=== PATIENT | female | born 1985 | race Caucasian/White ===

== ENCOUNTER → 2020-11-07 13:39 | Outpatient (CLI) | payer OTHER, SELFPAY ==
--- NOTE | ~2020-11-07 | US_ITS ---
EXAMINATION: US thyroid EXAM DATE: 11/07/2020 14:04 INDICATION: Thyroid nodule. TECHNIQUE: Multiple grayscale and Doppler images of the thyroid were obtained (by a technologist who performed the scan) and subsequently reviewed. Individual nodules and recommendations may be reporte d in accordance with TI-RADS system as designated by the 2017 ACR White Paper TI-RADS committee. Comp shmuelson is made to prior examination from 10/17/2018. FINDINGS: The right thyroid lobe measures 7.4 x 3.1 x 2.8 cm, the left measuring 6.0 x 2.6 x 2.7 cm. Moderately heterogeneous thyroid echogenicity with scattered thyroid nodules suspected, most are difficult to c onfidently delineate due to them being isoechoic to the other thyroid parenchyma. Largest thyroid is in the right thyroid lobe midpole (previously biopsied), just below a smaller bett er defined nodule, measuring 2.8 x 2.0 x 1.9 cm, solid (2 points), isoechoic (1 point), wider than ta ll, ill-defined margin, without echogenic foci, category TR3 for this nodule. These measurements are larger than those provided on prior study. The nodule located just above it has also increased in siz e, today measuring 1.7 x 1.4 x 1.5 cm, similar appearance to the larger previously biopsied nodule. IMPRESSION: Multinodular goiter, with increase in size of thyroid and its nodules, probably benign (1 biopsy-proven). Reviewed, dictated and finalized at location A. IMPRESSION: Multinodular goiter, with increase in size of thyroid and its nodul es, probably benign (1 biopsy-proven).
== END ==
PROVIDERS: PCP Chiropractor
DX: E04.2 Nontoxic multinodular goiter (principal)
CPT/HCPCS: 76536

== ENCOUNTER → 2021-03-16 14:24 | Outpatient (CLI) | payer OTHER, SELFPAY ==
--- NOTE | ~2021-03-16 | XR_ITS ---
EXAMINATION: XR ankle RT 2V DATE: 03/16/2021 14:39 INDICATION: Right ankle injury and pain. TECHNIQUE: 2 views of right ankle were obtained. COMPARISON: None. FINDINGS: Bone alignment is normal. No fracture. Joint spaces are well maintained. There is ankle sof t tissue swelling. IMPRESSION: 1. No fracture. Reviewed, dictated and finalized at location A. IMPRESSION: 1. No fracture.
== END ==
PROVIDERS: PCP Family Medicine; Visit Provider Physician Assistant
DX: S99.911A Unspecified injury of right ankle, initial encounter (principal); X58.XXXA Exposure to other specified factors, initial encounter
CPT/HCPCS: 73600

== ENCOUNTER → 2021-06-12 09:47 | Outpatient (CLI) | payer OTHER, SELFPAY ==
--- NOTE | ~2021-06-12 | US_ITS ---
EXAMINATION: US thyroid DATE: 06/12/2021 10:03 INDICATION: Nontoxic single thyroid nodule. TECHNIQUE: Multiple ultrasound images of the thyroid were obtained. COMPARISON: Ultrasound 11/07/2020, 10/17/2018 FINDINGS: The right thyroid lobe measures 7.2 x 3.6 x 3.0 cm. The left thyroid lobe measures 6.4 x 3.0 x 2.5 c m. There are numerous nodules in the thyroid with similar ultrasound appearance. In the right thyroi d lobe, there is a 1.6 cm solid, isoechoic, aeghf-azjt-dmrv nodule with ill-defined margin without ec hogenic foci (TI-RADS TR3). In the right thyroid lobe, there is a 2.0 cm solid, hypoechoic, wider-riki n-tall nodule with ill-defined margin without echogenic foci (TR4). These two nodules were measured t ogether on 10/17/18 and are stable from that time. They demonstrated benign biopsy results on 11/10/18. In the left thyroid lobe, there is a 1.7 cm solid, isoechoic, mkbjo-tasc-hgvt nodule with ill-define d margin without echogenic foci (TR3), increased from 1.2 cm on 10/17/18. In the left thyroid lobe, th ere is a 1.4 cm solid, hypoechoic, yfizd-jakp-kxzx nodule with ill-defined margin without echogenic f oci (TR4), stable from 10/17/18. IMPRESSION: 1. Multinodular goiter. Thyroid ultrasound is recommended in one year. Reviewed, dictated and finalized at location A. 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
== END ==
PROVIDERS: PCP Family Medicine; Visit Provider Internal Medicine Endocrinology, Diabetes & Metabolism
DX: E04.2 Nontoxic multinodular goiter (principal)
CPT/HCPCS: 76536

== ENCOUNTER 2021-07-17 09:32 | Emergency (ER) | payer OTHER, SELFPAY ==
--- NOTE | ~2021-07-17 | US_ITS ---
US pelvic complete w TV DATE: 07/17/2021 11:44 INDICATION: Vaginal bleeding TECHNIQUE: Real-time imaging via transabdominal and transvaginal views COMPARISON: None FINDINGS: Uterus measures approximately 10 cm height, 4.6 cm AP and transverse dimension with 7 mm AP dimension of the endometrial complex. Nabothian cervical cysts are noted. Right ovary 4.7 x 2.8 x 2.5 cm, with vascular flow. Left ovary 4.4 x 2.1 x 2.6 cm with vascular flow. No pelvic mass lesion or abnormal pelvic free fluid collection is evident. IMPRESSION: Unremarkable examination Reviewed, dictated and finalized at Location A. Reviewed, dictated and finalized at location A. 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
[2021-07-17 09:40] VITALS: BP 142/99; PULSE 87; RESP 21; TEMP 36.7; O2SAT 96
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
[2021-07-17 11:00] VITALS: BP 141/80; PULSE 80; RESP 20; O2SAT 100
[2021-07-17 11:55] LABS: Basophils Percent Auto 0.5 % (0.2-1.2); Eosinophils Absolute Auto 0.2 K/mm3 (0-0.3); Eosinophils Percent Auto 2.1 % (0-4.4); Hematocrit 40.8 % (37.0-47.0); Hemoglobin 13.8 g/dL (12.0-15.0); Immature Granulocyte Absolute 0.02 K/mm3 (0.00-0.031); Immature Granulocyte Percent A 0.2 % (0-0.5); Lymphocytes Absolute Auto 2.79 K/mm3 (0.9-3.2); Lymphocytes Percent Auto 33.3 % (18.3-44.2); Mean Corpuscular HGB Conc 33.8 g/dl (32-36); Mean Corpuscular Hemoglobin 29.7 pg (26-34); Mean Corpuscular Volume 87.7 fl (80-100); Mean Platelet Volume 9.2 fl (7.4-10.4); Monocytes Absolute Auto 0.6 K/mm3 (0.1-0.6); Neutrophils Absolute Auto 4.8 K/mm3 (1.3-6.7); Neutrophils Percent Auto 56.9 % (45.5-73.1); Platelet Count Result 383 k/mm3 (150-375); Red Blood Count 4.65 M/mm3 (4.2-5.4); Red Cell Distribution Width 12.2 % (11.5-14.5); White Blood Count 8.4 K/mm3 (4.5-10.0)
[2021-07-17 12:05] LABS: Prothrombin Time 13.2 Seconds (11.1-14.7)
[2021-07-17 12:06] LABS: Alanine Aminotransferase 18 U/L (4-35); Albumin Level 3.9 g/dL (3.5-5.1); Alkaline Phosphatase 64 U/L (38-126); Anion Gap 7 mmol/L (8-16); Aspartate Amino Transferase 20 U/L (14-36); Bilirubin,Total 0.4 mg/dL (0.2-1.3); Blood Urea Nitrogen 8 mg/dL (7-17); Calcium 8.9 mg/dL (8.4-10.2); Carbon Dioxide 25 mmol/L (22-30); Chloride 105 mmol/L (98-107); Estimated Glomerular Filt Rate > 60; Glucose 91 mg/dL (65-110); Lipase 51 U/L (23-300); Partial Thromboplastin Time 32.9 SECONDS (22.3-36.8); Sodium 137 mmol/L (137-145)
[2021-07-17 12:08] LABS: Add Urine Microscopic? YES; Appearance Urine Cloudy (Clear); Bilirubin Urine Negative (Negative); Blood Urine 3+ (Negative); Color Urine Red (Yellow); Glucose Urine UA Negative (Negative); Ketones Urine Negative (Negative); Leukocyte Esterase Ur Negative LEU/UL (Negative); Nitrate Urine Negative (Negative); Protein Urine 1+ mg/dL (Negative); RBC Urine >75 /hpf (0-2); Specific Grav Ur 1.014 (1.001-1.035); Squamous Epithelial Cell Urine Occasional /hpf (Few); Urobilinogen Urine Negative mg/dL (<2.0); WBC Urine 0-3 /hpf
[2021-07-17 13:00] VITALS: BP 140/74; PULSE 79; RESP 20; O2SAT 100
== END 2021-07-17 14:33 | disposition home or self-care (01) ==
PROVIDERS: Emergency Provider Nurse Practitioner
DX: N93.9 Abnormal uterine and vaginal bleeding, unspecified (principal); E28.2 Polycystic ovarian syndrome; I10 Essential (primary) hypertension; F17.210 Nicotine dependence, cigarettes, uncomplicated
CPT/HCPCS: 36415; 76830; 76856; 80053; 81001; 81025; 83690; 85025; 85610; 85730; 87070; 87491; 87591; 87808; 99284

== ENCOUNTER → 2022-03-08 14:57 | Outpatient (CLI) | payer OTHER, SELFPAY ==
--- NOTE | ~2022-03-08 | XR_ITS ---
XR hip RT 2V w AP pelvis 03/08/2022 15:39 Indication: Right hip pain Procedure: 3 views right hip Comparison: No prior studies for comparison. Findings: Pelvic rings are intact. No fracture, subluxation or dislocation. No significant joint spac e narrowing. No soft tissue abnormality. No foreign body. Impression: 1: No significant abnormality of the right hip. Reviewed, dictated and finalized at location B. Impression: 1: No significant abnormality of the right hip.
== END ==
PROVIDERS: PCP Family Medicine; Visit Provider Family Medicine
DX: M25.551 Pain in right hip (principal)
CPT/HCPCS: 73502

== ENCOUNTER 2022-05-06 13:18 | Outpatient (CLI) | payer OTHER, SELFPAY ==
--- NOTE | 2022-05-06 13:28 | ECG_ITS ---
Measurements Intervals [place] Rate: 79 P: 37 NE: 133 QRS: -8 QRSD: 89 T: 17 QT: 353 QTc: 405 Interpretive Statements SINUS RHYTHM WITH SINUS ARRHYTHMIA NO PREVIOUS ECG AVAILABLE FOR COMPARISON Electronically Signed On 05-06-2022 15:53:54 CDT by Kirstin Arana M.D.
[2022-05-06 13:56] LABS: Anion Gap 10 mmol/L (8-16); Blood Urea Nitrogen 9 mg/dL (7-17); Calcium 9.3 mg/dL (8.4-10.2); Carbon Dioxide 23 mmol/L (22-30); Chloride 105 mmol/L (98-107); Estimated Glomerular Filt Rate > 60; Glucose 98 mg/dL (65-110); Sodium 138 mmol/L (137-145)
== END 2022-05-06 13:19 | disposition home or self-care (01) ==
LOC: ANHSURGERY 13:23
PROVIDERS: Anesthesiology; PCP Family Medicine; Visit Provider Obstetrics & Gynecology
DX: E11.9 Type 2 diabetes mellitus without complications (principal); I10 Essential (primary) hypertension; Z01.818 Encounter for other preprocedural examination
CPT/HCPCS: 36415; 80048; 93005

== ENCOUNTER 2022-05-12 01:14 | Day surgery (SDC) | payer OTHER, SELFPAY ==
[2022-05-05 13:54] VITALS: BMI 32.3
--- NOTE | 2022-05-05 14:05 | PC.NURSE ---
Report to the Outpatient Waiting Room, entrance under the green pavilion located off [facility], at time 10:00 on date 05/12/22. OR Time: 12:00. Time changes happen often and if your time is changed the preop area will call you the afternoon before. - You and your visitor will be asked to self-screen and do not enter if you have any COVID symptoms. - We encourage only one visitor and NO visitors under age 16 are allowed at this time. Your visitor will receive communication by the phone number that is given day of service. - The patient visitor is requested to social distance or may leave the building when not with patient due to restrictions. - A mask is required within the hospital. Patients may have clear liquids (water, carbonated beverages, clear teas, apple juice) until 3 hours prior to surgery (9:00) with a maximum of 20 ounces. - No food from midnight until time of surgery Take the following medications with a SIP of water the morning of surgery: PROPRANOLOL Medications to discontinue per physician: VITAMINS/SUPPLEMENTS Date to take last dose: 05/08/22 Please no make-up, nail kosovan, hairspray, perfume, deodorant, or body powder the day of surgery. No jewelry (including any body piercings) or valuables the day of surgery, leave them at home. Please take a shower or bath the night before, or the morning of, surgery with an antibacterial soap. Wear comfortable, loose fitting clothing. - Jewelry must be removed prior to entering the operating room. Rings and piercings that are not removed may be cut off. - The hospital will not accept responsibility for valuables. - Please leave all valuables, including medications, at home the day of surgery. If you are going home after surgery, a licensed jitney driver must drive you home. - NO public transportation without another adult. - We recommend that an adult stay with you for 24 hours following discharge. - We also recommend that you do not drive, make important decision, drink alcoholic beverages, or take any drugs that were not prescribed by your health care provider for at least 24 hours after your discharge time. Follow any additional instructions given to you from your surgeon. If you or anyone in your household have experienced Covid symptoms in the past week, please notify your surgeon or the nurse liaison at the phone number below for possible testing. Telephone instructions given to PT - LEESA PUENTES and asked if any additional questions and then verbalized understanding. Patient advised to call surgeon office or pre surgery nurse liaison [phone] if any additional questions.
[2022-05-12] VITALS (9 sets, daily range): BP systolic 119–129; BP diastolic 66–95; PULSE 49–94; RESP 10–16; TEMP 36.2–37.1; O2SAT 96–100
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
[2022-05-12] MEDS: ACETAMINOPHEN 500 MG TABLET 1000 MG PO (10:18)
[2022-05-12] MEDS: LACTATED RINGERS 1,000 ML 30 ML IV CONT ×2 (10:27→13:22)
[2022-05-12] MEDS: KETOROLAC 15 MG/ML VIAL (*BKC) IV PUSH (10:29)
[2022-05-12 10:36] LABS: Glucose Point of Care 89 mg/dl (65-105)
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
--- NOTE | 2022-05-12 12:01 | WPDHPUPDATE1 ---
History and Physical Update Update Date/Time: 05/12/22 12:01 History and Physical has been reviewed, including an updated exam of the patient. There are NO changes in the patient's condition. Risks, benefits, and alternatives have been discussed and questions answered. Patient agrees to proceed with procedure.
[2022-05-12] MEDS: LIDOCAINE HCL 1% PF 30 ML VIAL 17 ML INFILTRATE (12:10)
--- NOTE | 2022-05-12 13:26 | W.PM.PROC2 ---
Procedure Note - Detailed Date of Procedure 05/12/22 Pre-op Diagnosis Menorrhagia Desired sterility Post-op Diagnosis Same Procedure Performed Laparoscopic bilateral tubal ligation Hysteroscopy Dilation and sharp curettage Endometrial ablation Surgeon Erasmo Gautam MD Anesthesia General and Local (1% lidocaine) Findings Normal pelvis. Normal-appearing uterus, bilateral tubes/ovaries, anterior and posterior cul de sac, bilateral uterosacral and round ligaments. Normal-appearing RUQ anatomy and vermiform appendix. Endometrial cavity unremarkable, both tubal ostia seen. Uterus sounded to a depth of 8.5 cm with a cervical length of 3.5 cm, giving a subtracted uterine cavity length of 5 cm. Description of Procedure The patient was taken to the operating room where general endotracheal anesthesia was administered. She was prepared and draped in the usual sterile fashion in dorsal lithotomy position. The bladder was drained with a red rubber catheter. A sterile speculum was placed into the vagina. The anterior lip of the cervix was grasped with a single-tooth tenaculum. The acorn uterine manipulator was placed. The speculum was withdrawn. Gloves were changed and attention was turned the abdomen. An infraumbilical skin incision was made with a scalpel. The abdomen was tented and a 5mm bladeless trocar was advanced under direct laparoscopic visualization. Pneumoperitoneum was administered using carbon dioxide gas. A survey of the pelvis and abdomen revealed the findings noted above. A second skin incision was made in the midline above the symphysis pubis and an 8mm bladeless trocar was advanced under direct laparoscopic visualization. The fallopian tube on the right side was followed out to the fimbriated end for identification. It was then grasped in the midportion with the Falope ring applicator. The Falope ring was tented applied. A good loop of tube was noted to be distal to the ring. Hemostasis was excellent. The device was reloaded and the left tube was similarly identified and ligated. Here an unsatisfactory application of the Falope ring was observed. The ring was retrieved and discarded. The Kleppinger forceps were used and the midportions of the bilateral tubes were fulgurated, using the ammeter. A total of 7mL of 1% lidocaine was infiltrated into the serosa of the proximal tubes for postoperative anesthesia. The ports were withdrawn. The gas was allowed to escape. The skin incisions were reapproximated using interrupted subcuticular sutures of 4 0 Vicryl. Dermaflex was applied externally. Attention was then returned to the vagina. The acorn manipulator was withdrawn and the speculum reintroduced. Ten mL of 1% lidocaine was administered in a paracervical block. The cervix was then gently dilated using Hegar dilators until an 8 mm dilator could be passed. Hysteroscopy was performed using sterile saline as a distention medium. Findings are as noted above. Sharp curettage was then performed, and endometrial curettings were collected on a Telfa pad and passed off to be sent to pathology. Finally, the the Irina device was advanced and endometrial ablation commenced without difficulty. The device was withdrawn and a second look was taken using the hysteroscope. Excellent coverage of the endometrial cavity was noted. The tenaculum was removed. Hemostasis was excellent. Sponge, lap, needle and instrument counts were correct. The patient was awakened and taken to the recovery room in stable condition. I was present and scrubbed through the entire procedure. Implants Falope ring x 1 Estimated Blood Loss 5 Drains No Packing No Pathology Yes (Endometrial curettings) Complications None Condition Stable Disposition PACU
[2022-05-12] MEDS: fentaNYL CITRATE INJ (*CRX) 100 MCG/2 ML VIAL 25 MCG IV PUSH ×4 (13:36→13:57)
[2022-05-12] MEDS: KETOROLAC 30 MG/ML VIAL (*BKC) IV PUSH (14:21)
[2022-05-12 14:50] LABS: Glucose Point of Care 115 mg/dl (65-105)
[2022-05-12] MEDS: ONDANSETRON INJ 4 MG/2 ML VIAL IV PUSH (15:07)
== END 2022-05-12 15:44 | disposition home or self-care (01) ==
PROVIDERS: PCP Family Medicine; Visit Provider Obstetrics & Gynecology
PROC: 0UDB8ZZ Extraction of Endometrium, Via Natural or Artificial Opening Endoscopic (ICD-10-PCS; CPT 58558; principal; 2022-05-12 12:00)
DX: N92.0 Excessive and frequent menstruation with regular cycle (principal); Z30.2 Encounter for sterilization; I10 Essential (primary) hypertension; E28.2 Polycystic ovarian syndrome; F17.210 Nicotine dependence, cigarettes, uncomplicated; Z79.899 Other long term (current) drug therapy; E66.9 Obesity, unspecified; Z68.32 Body mass index [BMI] 32.0-32.9, adult
CPT/HCPCS: 58670; 58563; 36415; 80048; 82948; 88305; 93005; A4264; A9270; J1100; J1885; J2250; J2405; J2704; J2710; J3010; J7030; J7120

== ENCOUNTER → 2022-06-10 14:40 | Outpatient (CLI) | payer OTHER, SELFPAY ==
--- NOTE | ~2022-06-10 | US_ITS ---
EXAMINATION: US thyroid DATE: 06/10/2022 15:02 INDICATION: Nontoxic thyroid nodule. TECHNIQUE: Multiple ultrasound images of the thyroid were obtained. COMPARISON: Thyroid ultrasound 06/12/2021, 10/17/2018 FINDINGS: The right thyroid lobe measures 7.4 x 3.6 x 3.0 cm. The left thyroid lobe measures 7.0 x 3.1 x 3.1 c m. There are multiple ill-defined hypoechoic nodules in the thyroid with similar ultrasound appearan ce. In the right thyroid lobe, there is a 1.9 cm solid, hypoechoic, wider than tall nodule with ill-d efined margin without echogenic foci (TI-RADS TR4), enlarged from 10/17/18. In the right thyroid lobe, there is a 3.3 cm solid, hypoechoic, wider than tall nodule with ill-defined margin without echogeni c foci (TR4) status post benign biopsy on 11/10/2018 without increase in size. In the left thyroid lob e, there is a 1.8 cm solid, hypoechoic, wider than tall nodule with ill-defined margin without echoge gay foci (TR4), enlarged from 10/17/18. In the left thyroid lobe, there is a 1.7 cm solid, hypoechoic, wider than tall nodule with ill-defined margin without echogenic foci (TR4), enlarged from 10/17/18. IMPRESSION: 1. Multinodular goiter. Consider ultrasound-guided fine-needle aspiration of the largest nodule that has not yet been biopsied. Reviewed, dictated and finalized at location A. ITY PROJECT MANAGER IMPRESSION: 1. Multinodular goiter. Consider ultrasound-guided fine-needle aspiration of th e largest nodule that has not yet been biopsied.
== END ==
PROVIDERS: PCP Family Medicine; Visit Provider Internal Medicine Endocrinology, Diabetes & Metabolism
DX: E04.2 Nontoxic multinodular goiter (principal)
CPT/HCPCS: 76536

== ENCOUNTER 2024-07-19 17:52 | Emergency (ER) | payer OTHER, SELFPAY ==
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
[2024-07-19 18:02] VITALS: BP 153/124; PULSE 84; RESP 16; TEMP 36.9; O2SAT 99
[2024-07-19 18:21] VITALS: BP 156/109
== END 2024-07-19 18:33 | disposition home or self-care (01) ==
PROVIDERS: Emergency Provider Nurse Practitioner Family; PCP Registered Nurse
DX: J06.9 Acute upper respiratory infection, unspecified (principal); J40 Bronchitis, not specified as acute or chronic; F17.210 Nicotine dependence, cigarettes, uncomplicated; I10 Essential (primary) hypertension; E28.2 Polycystic ovarian syndrome; E05.90 Thyrotoxicosis, unspecified without thyrotoxic crisis or storm
CPT/HCPCS: 99213; G0463

== ENCOUNTER 2024-08-31 08:01 | Outpatient (CLI) | payer OTHER, SELFPAY ==
--- OUTSIDE RECORDS SUMMARY | 2024-08-31 08:11 | XMS_ITS | Clinical Summary ---
Author Organization [facility] Address [address] [place] [address] Care Team Providers Care Pinking Machine Operator Name Role Phone Janis Powell APRN, CNP Primary Care Provider + Encounters Date Type Department Care Team Description 08/29/2024 Transcribe Orders [facility] [address] [address] Janis Powell APRN, CNP Visit for screening mammogram (Primary Dx) from Last 3 Months Social History Tobacco Use Types Packs/Day Years Used Date Smoking Tobacco: Never Assessed Comments Unknown Sex and Gender Information Value Date Recorded Sex Assigned at Not on file Legal Sex Female 1:39 PM MIXER BLENDER Gender Identity Not on file Sexual Orientation Not on file Plan of Treatment Upcoming Encounters Date Type Department Care Team (Late st Contact Info) Description 09/12/2024 7:15 AM MIXER BLENDER [facility]ointment [facility] [address] [place] [id number] Janis Powell APRN, MOIRA [facility] [place] [address] Discharge Disposition: Discharged to home or Selfcare Health Maintenance Due Date Last Done Comments Hepatitis C Virus (HCV) Screening 1984 Hepatitis B Immunization (1 of 3 - 19+ 3-dose series) 2003 Pap Smear 2005 Cervical Cancer Screening (CCS) 2014 HPV/Cotest 2014 Influenza Immunization (#1) 2024 SARS-COV-2 Immunization ( season) 2024 07/09/2021, 11/18/2020, 10/21/2020 Discussion re Starting/Frequency of Mammograms 2024 Respiratory Syncytial Virus (RSV) Immunization (Adult) (1 - 1-dose 75+ series) 2059 TdaP Immunization Completed 09/10/2022 Meningococcal Immunization (ACWY) Aged Out No longer eligible b ased on patient's age to complete this topic Pneumococcal Immunization Combined Aged Out No longer eligible b ased on patient's age to complete this topic Rotavirus Immunization Aged Out No lo nger eligible based on patient's age to complete this topic Insurance [facility] on file Care Teams Pinking Machine Operator Relationship Specialty Start Date End Date Janis Powell APRN, MOIRA [address] [place] [id number] PCP - General Family Medicine 08/29/24
--- OUTSIDE RECORDS SUMMARY | 2024-08-31 08:11 | XMS_ITS | Continuity of Care Document ---
Author Organization [facility] Address [address] [place] [address] Phone Care Team Providers Care Radio Rigger Name Role Phone Efraín Hernandez MD Unavailable Unavailable Allergies, Adverse Reactions, Alerts Substance Reaction Status Criticality No Known Drug Allergies Active No I nformation Medications Medication Instructions Dosage Effective Dates (start - stop) Status Comments Ventolin HFA 90 mcg/actuation aerosol inhaler inhale 2 puff by inhalation route every 4 hours as needed - No Longer Active 28 mg-800 mcg tablet take 1 tablet by oral route every day - No Longer Active Advance Directives Directive Yes / No Effective Date File Name No Information Encounters Encounter Description Practice Location Reason(s) For Visit Diagnoses Date Provider Providers Copied on Encounter [facility], [id number] [place] [address], [id number] , tel: [phone] [facility] No Information 8 David Kenny. [address] [place] [address], [id number] , . tel: [phone] [facility], [address] [place] [address], [id number] , tel: [phone] [facility] No Information 8 David Kenny. [address] [place] [address], [id number] , . tel: [phone] [facility], [address], [place], [id number] , tel: [phone] [facility] Dyspnea on exertion Aug-0 7-201 8 Everardo Daniel. [address] [facility], [address], [place], [place], [id number] , . tel: [phone] Referring Provider: Efraín Hernandez, [address] [place] [address] [address], [place], [address] . tel:[phone] [employer], [address], [place], [place], [id number] , tel: [phone] [facility] Essential (primary) hypertensionSmokerOro pharyngeal dysphagia May-2 0 [address] [place] [address], [address], [place], [place], [id number] . tel: [phone] Referring Provider: Efraín Hernandez, [address] [place] [address] [address], [place], [address] . tel:[phone] [facility], [address], [place], [place], [id number] , tel: [phone] [facility] Essential (primary) hypertensionObesity, unspecifiedNicotine dependence, unspecified, uncomplicatedGanglion cyst of wrist, left [address] [place] [address], [address], [place], [place], [id number] . tel: [phone] Referring Provider: Efraín Hernandez, [address] [place] [address] [address], [place], [address] . tel:[phone] [facility], [address], [place], [place], [id number] , tel: [phone] [facility] Essential hypertensionPolycysti c ovarian syndromeCurrent smokerBreast pain, right 0 5 7 Dwain Natalya. [address] [facility], [address], [place], [place], [id number] . tel: [phone] Referring Provider: Efraín Hernandez [address] [place] [address] [address], [place], [address] . tel:[phone] Family History Family Member Type Diagnosis Age At Onset Mother Problem (finding) Father Problem (finding) coronary arterioscleros is Father Problem (finding) Diabetes mellitus Immunizations Vaccine Date Status Comments Tdap administered Source: [facility] unization Record Payers Payer name Insurance type Covered republican ID Melany sarmiento(s) [facility] CI [id number] [facility] [id number] Social History Type Description Quantity Date Captured Comments Alcohol Use Details Unknown Caffeine Use Details Unknown Tobacco Use Status No Information Smoking Status No Information Sex Female Chief Complaint And Reason For Visit No Information Reason For Referral Reason For Referral No Information History Of Present Illness Encounter Date Complaint History Of Prese nt Illness No Information Functional Status Date Functional Assessmen t No Information Instructions Date Instruction Additional Infor mation No Information Assessments Type Assessment Date No Information Patient Care Teams Name Effective Dates (start - stop) Status Members No Information
--- OUTSIDE RECORDS SUMMARY | 2024-08-31 08:11 | XMS_ITS | Clinical Summary ---
Author Organization [facility] Address [address] [place] [address] Care Team Providers Care Bilingual Spanish Inbound Sales Name Role Phone Janis Powell Primary Care Provider Allergies No known active allergies Medications vitamin D3, cholecalciferol, 5000 UNITS capsule Take 1 capsule (125 mcg total) by mouth daily. Active varenicline, starter pack, (CHANTIX STARTING MONTH ) 0.5 MG X 11 & 1 MG X 42 tabletIndications: Cigarette nicotine dependence without complication Take as directed 53 each 02/14/20 24 Active Additional Information Patient not taking.Reported on 08/28/2024 propranolol LA (INDERAL LA) 80 MG 24 hr capsuleIndications :Primary hypertension,Grave s disease,Heidy' s disease Take 1 capsule (80 mg total) by mouth daily. 90 capsule 3 08/17/19 25 Active propranolol LA (INDERAL LA) 80 MG 24 hr capsuleIndications :Primary hypertension,Grave s disease,Heidy' s disease Take 1 capsule (80 mg total) by mouth daily. 90 capsule 3 07/07/20 23 025 Discontin ued(Reord er) ondansetron (ZOFRAN-ODT) 4 MG disintegrating tabletIndications: Nausea Take 1 tablet (4 mg total) by mouth every 8 (eight) hours as needed for Nausea. 20 tablet 02/14/20 24 025 Discontin ued(Thera py completed ) LORazepam (ATIVAN) 0.5 MG tabletIndications: Anxiety Take one tablet by mouth one hour prior to procedure, may repeat x 1 if needed. 2 tablet 02/17/20 24 025 Discontin ued(Thera py completed ) azithromycin (ZITHROMAX) 250 MG tabletIndications: Acute non-recurrent sinusitis, unspecified location Take 2 tabs daily for one day, then take 1 tab daily 6 tablet 07/24/20 24 025 Discontin ued(Thera py completed ) Active Problems Problem Noted Date Diagnosed Date Hypertension BMI 31.0-31.9,adult Graves disease Heidy's disease Vitamin D deficiency PCOS (polycystic ovarian syndrome) Cigarette nicotine dependence without complicati on Encounters Date Type Department Care Team Description 08/28/2024 2:20 PM SUPERVISOR SHIPPING Office Visit [facility] Medicine [address] [phone] Janis Powell APNP Physical 08/28/2024 Travel 07/19/2024 Scan [employer] INFO SRVCS Scanned, [facility] 07/19/2024 Telephone [facility] [address] [phone] Janis Powell APNP Cough from Last 3 Months Immunizations Name Administration Dates Next Due MODERNA COVID-19 (SALVAGE ENGINEER BERNADINE FANNY), MRNA, LNP-S, PF, 50 MCG/ 0.25 ML DOSE 07/09/2021 Tdap (Adacel) 09/10/2022 Family History Medical History Relation Comments Arthritis Father Diabetes Father Heart Disease Father Hypertension Father Kidney Disease Father Vision loss Father Relation Status Comments Father Alive Mother MVA Social History Tobacco Use Types Packs/Day Years Used Date Smoking Tobacco: Every Day Cigarettes 0.5 18 Smokeless Tobacco: Never Tobacco Cessation:Ready to Q uit: Not Asked; Counseling Given: Not Answered Comments:Provider can provide more information about quitting. Alcohol Use Standard Drinks/Week Comments Never 0 (1 standard drink = 0.6 oz pur e alcohol) rare 2x/yr AUDIT-C Answer Date Recorded Q1: How often do you have a drink containing alc ohol? Never 06/17/2020 Average Number of Drinks Not on file 020 Frequency of Binge Drinking Not on file 05/26 PHQ-2 Answer Date Recorded Patient Health Questionnaire-2 Score 0 08/28/2024 Comments No Sex and Gender Information Value Date Recorded Sex Assigned at Female 08/28/2024 2:17 PM SUPERVISOR SHIPPING Legal Sex Female 10:22 PM SUPERVISOR SHIPPING Gender Identity Not on file Sexual Orientation Not on file Last Filed Vital Signs Vital Sign Reading Time Taken Comments Blood Pressure 130/86 08/28/2024 2:17 PM SUPERVISOR SHIPPING Pulse 82 08/28/2024 2:17 PM SUPERVISOR SHIPPING Temperature 37.1 C (98.8 F) 08/28/2024 2:17 PM SUPERVISOR SHIPPING Respiratory Rate 16 08/28/2024 2:17 PM SUPERVISOR SHIPPING Oxygen Saturation 98% 08/28/2024 2:17 PM SUPERVISOR SHIPPING Inhaled Oxygen Concentration - - Weight 100 kg (220 lb 8 oz) 08/28/2024 2:[address] Height 167.6 cm (5' 6 ) 08/28/2024 2:17 PM SUPERVISOR SHIPPING Body Mass Index 35.59 08/28/2024 2:17 PM SUPERVISOR SHIPPING Plan of Treatment Health Maintenance Due Date Last Done Comments Cervical Cancer Screening Pa p Smear (Age 30 to 64) Every 3 Years 1984 Cervical Cancer Screening Pa p with HPV Testing (Age 30 to 64) Every 5 Years 2014 Annual Physical 08/28/2025 08/28/2024 COVID-19 Vaccine (2023-2 5 season) 2025 07/09/2021, 11/18/2020, 10/21/2020 Postponed from 03/25/2024 (Patient Refused) Cervical Cancer Screening with HPV 08/28/2025 Postponed from 06/04 (Going to Outside Clinic) Hepatitis B Vaccines (1 of 3 - 19+ 3-dose series) 08/28/2025 Postponed from 05/25 (Awaiting Documentation) Influenza Adult (#1) 2025 Postpon ed from 04/24/2024 (Patient Refused) Mammogram Screening 08/28/2025 Postpone d from 2024 (Going to Outside Clinic) Pneumococcal Vaccine: Pediatrics (0 to 5 Years) and At-Risk Patients (6 to 64 Years) (1 of 2 - PCV) 08/28/2025 Postponed from 05/1990 (Patient Refused) DTaP, Tdap and Td Vaccines ( 2 - Td or Tdap) 09/10/2032 09/10/2022 Hepatitis C Completed 09/10/2022 PHQ-2 (Physician [place]) Completed 08/28/2024 HPV Vaccines Aged Out No longer eligi ble based on patient's age to complete this topic Meningococcal B Vaccine Aged Out No l onger eligible based on patient's age to complete this topic Meningococcal Vaccine Aged Out No michi dilshad eligible based on patient's age to complete this topic RSV Immunizations Under 20 Months Aged Out No longer eligible b ased on patient's age to complete this topic Procedures Procedure Name Priority Date/Time Associated Diagnosis Comments HEPATITIS C ANTIBODY W/RFX TO HCV RNA Routine 09/10/2022 10:58 AM SUPERVISOR SHIPPING from Last 3 Months or Most Recently Relevant to Health Maintenance Results * HEPATITIS C ANTIBODY W/RFX TO HCV RNA (09/10/2022 10:58 AM SUPERVISOR SHIPPING) HEPATITIS C AB NON-REACT CASSIE NON-REACT CASSIE [facility] SIGNAL TO CUTOFF 0.02 <1.00 [facility] Comment: HCV antibody was non-reactive. There is no laboratory evidence of HCV infection. In most cases, no further action is required. However, if recent HCV exposure is suspected, a test for HCV RNA (test code 63116) is suggested. For additional information please refer to http://education.Total-trax/faq/XKP03u6 (This link is being provided for informational/ educational purposes only.) 09/10/2022 10:5 8 AM SUPERVISOR SHIPPING 09/10/2022 10:59 AM SUPERVISOR SHIPPING Narrative [facility] - DEB ORDERS - 09/12/2022 7:43 AM SUPERVISOR SHIPPING FASTING:NO FASTING: NO Resulting Agency Comment Performing Organization Information: Site ID: [id number] Name: [facility] Address: [address] [address] Director: Harrison Zuñiga MD Janis [facility] Final Resul t Tethis Enedina DEB ORDERS [facility] [address], [place] [address], [place] from Last 3 Months or Most Recently Relevant to Health Maintenance Insurance [facility] Care Teams Bilingual Spanish Inbound Sales Relationship Specialty Start Date End Date Janis Powell APNP [address] [place] [id number] PCP - General NURSE PRACTITIONER 09/10/22
[2024-08-31 09:10] LABS: Basophils Percent Auto 0.6 % (0.2-1.2); Eosinophils Absolute Auto 0.2 K/mm3 (0-0.3); Eosinophils Percent Auto 2.7 % (0-4.4); Hematocrit 42.9 % (37.0-47.0); Hemoglobin 14.2 g/dL (12.0-15.0); Immature Granulocyte Absolute 0.01 K/mm3 (0.00-0.031); Immature Granulocyte Percent A 0.2 % (0-0.5); Lymphocytes Absolute Auto 2.26 K/mm3 (0.9-3.2); Mean Corpuscular HGB Conc 33.1 g/dl (32-36); Mean Corpuscular Hemoglobin 29.7 pg (26-34); Mean Corpuscular Volume 89.7 fl (80-100); Mean Platelet Volume 9.8 fl (7.4-10.4); Monocytes Absolute Auto 0.6 K/mm3 (0.1-0.6); Monocytes Percent Auto 9.2 % (2.6-8.5); Neutrophils Absolute Auto 3.5 K/mm3 (1.3-6.7); Neutrophils Percent Auto 53.3 % (45.5-73.1); Platelet Count Result 359 k/mm3 (150-375); Red Blood Count 4.78 M/mm3 (4.2-5.4); Red Cell Distribution Width 11.9 % (11.5-14.5); White Blood Count 6.6 K/mm3 (4.5-10.0)
[2024-08-31 09:28] LABS: Alanine Aminotransferase 21 U/L (6-35); Albumin Level 4.1 g/dL (3.5-5.1); Alkaline Phosphatase 62 U/L (38-126); Anion Gap 9 mmol/L (4-12); Aspartate Amino Transferase 19 U/L (14-36); Bilirubin,Total 0.5 mg/dL (0.2-1.3); Blood Urea Nitrogen 13 mg/dL (7-17); Calcium 9.1 mg/dL (8.4-10.2); Carbon Dioxide 24 mmol/L (22-30); Chloride 106 mmol/L (98-107); Cholesterol 167 mg/dL (0-200); Estimated Glomerular Filt Rate > 60; Glucose 102 mg/dL (65-110); HDL Direct 43 mg/dL; Potassium 3.9 mmol/L (3.4-5.0); Sodium 139 mmol/L (137-145); Triglycerides 100 mg/dL (<150)
[2024-08-31 09:38] LABS: LDL Cholesterol Direct 101 mg/dL
[2024-08-31 09:53] LABS: Hemoglobin A1C 5.3 % (<5.7)
[2024-08-31 09:54] LABS: Thyroid Stimulating Hormone < 0.015 uIU/mL (0.465-4.680)
[2024-08-31 10:02] LABS: Free T4 Free Thyroxine 1.48 ng/dL (0.78-2.19); Vitamin D 25 Hydroxy 46.5 ng/mL
[2024-09-04 08:43] LABS: Thyroglobulin 56.8 ng/mL; Thyroglobulin Antibodies 2 IU/mL (< or = 1); Thyroid Peroxidase Antibodies >900 IU/mL (<9)
[2024-09-05 17:24] LABS: Thyroid Stimulating Immunoglob 190 % baseline (<140)
== END 2024-08-31 08:02 | disposition home or self-care (01) ==
LOC: ANHLAB 08:05
PROVIDERS: PCP Registered Nurse; Visit Provider Registered Nurse
DX: Z00.00 Encounter for general adult medical examination without abnormal findings (principal); E05.00 Thyrotoxicosis with diffuse goiter without thyrotoxic crisis or storm; E06.3 Autoimmune thyroiditis; E55.9 Vitamin D deficiency, unspecified; R73.9 Hyperglycemia, unspecified; E66.01 Morbid (severe) obesity due to excess calories; Z68.35 Body mass index [BMI] 35.0-35.9, adult; E66.812 Obesity, class 2
CPT/HCPCS: 36415; 80053; 80061; 82306; 83036; 84432; 84439; 84443; 84445; 85025; 86376; 86800

== ENCOUNTER 2024-09-01 07:13 | Outpatient (CLI) | payer OTHER, SELFPAY ==
--- NOTE | ~2024-09-01 | US_ITS ---
EXAMINATION: US thyroid DATE: 09/01/2024 07:48 INDICATION: Enlarged thyroid. TECHNIQUE: Multiple ultrasound images of the thyroid were obtained. COMPARISON: Thyroid ultrasound 06/10/2022, 10/17/2018, 11/10/18 FINDINGS: The right thyroid lobe measures 9.7 x 3.9 x 4.0 cm. The left thyroid lobe measures 8.2 x 3.5 x 3.1 c m. The thyroid is diffusely heterogeneous. In the right thyroid lobe, there is a 2.2 cm solid, hypoec hoic, wider than tall nodule with smooth margin without echogenic foci (TI-RADS TR4), enlarged from 1 08/10/21. In the right thyroid lobe, there is a 2.5 cm solid, hypoechoic, wider than tall nodule with ill-defined margin without echogenic foci (TR4), stable from 11/10/18 when biopsy was benign. In the l eft thyroid lobe, there is a 1.7 cm solid, hypoechoic, wider than tall nodule with ill-defined margin without echogenic foci (TR4), enlarged from 06/10/22. The left thyroid lobe, there is a 2.5 cm mixed cystic and solid, isoechoic, wider than tall nodule with ill-defined margin without echogenic foci ( TR2). In the left thyroid lobe, there is a 2.2 cm predominantly solid, hypoechoic, wider than tall no dule with ill-defined margin without echogenic foci (TR4), enlarged from 06/10/22. IMPRESSION: 1. Multinodular goiter. Consider ultrasound-guided fine-needle aspiration of the largest nodule TR4 n odule that has not yet been biopsied. Reviewed, dictated and finalized at location A. Y EQUIPMENT MECHANIC IMPRESSION: 1. Multinodular goiter. Consider ultrasound-guided fine-needle aspiration of th e largest nodule TR4 nodule that has not yet been biopsied.
== END 2024-09-01 07:14 | disposition home or self-care (01) ==
LOC: MICIMG 07:14
PROVIDERS: PCP Registered Nurse; Visit Provider Registered Nurse
DX: E05.00 Thyrotoxicosis with diffuse goiter without thyrotoxic crisis or storm (principal); E06.3 Autoimmune thyroiditis; R13.19 Other dysphagia; E04.2 Nontoxic multinodular goiter
CPT/HCPCS: 76536

== ENCOUNTER 2025-05-03 13:52 | Outpatient (CLI) | payer OTHER, SELFPAY ==
--- NOTE | ~2025-05-03 | MM_ITS ---
EXAMINATION: MM screening zion BI w nabeel HISTORY: Screening TECHNIQUE: Craniocaudal and mediolateral oblique 3-D tomosynthesis images were obtained and synthetic 2-D images were generated. CAD analysis was submitted and interpreted. COMPARISON: No prior mammogram is available for comparison at this institution. BREAST PARENCHYMAL COMPOSITION: Not Dense: The breasts are almost entirely fatty. FINDINGS: There is no evidence of suspicious mass, calcification, or architectural distortion to suggest malignancy. IMPRESSION: 1. No mammographic evidence of malignancy. Recommend routine screening mammography in one year. BI-RADS Category 2: Benign finding(s) Reviewed, dictated and finalized at location Q. IMPRESSION: 1. No mammographic evidence of malignancy. Recommend routine screening mammogra phy in one year. BI-RADS Category 2: Benign finding(s)
== END 2025-05-03 13:53 | disposition home or self-care (01) ==
PROVIDERS: PCP Registered Nurse; Visit Provider Registered Nurse
DX: Z12.31 Encounter for screening mammogram for malignant neoplasm of breast (principal)
CPT/HCPCS: 77063; 77067

== ENCOUNTER 2025-06-12 11:10 | Emergency (ER) | payer OTHER, SELFPAY ==
--- NOTE | ~2025-06-12 | US_ITS ---
US abdomen limited Indication: ab pain Comparison: None Technique: Sarmiento-scale and color Doppler images were obtained. Findings: LIVER: Unremarkable, liver contours intact, no lesions. Normal echogenicity. . The liver measures 13.5 cm. GALLBLADDER/BILIARY: There is cholelithiasis, there is no wall thickening, no pericholecystic fluid. CBD 4.5 mm. Norris sign negative. PANCREAS: Pancreas limited by bowel gas. Right Kidney: The right kidney was not imaged. Impression: 1. Cholelithiasis. Reviewed, dictated and finalized at location P. INSPECTOR Impression: 1. Cholelithiasis.
--- NOTE | ~2025-06-12 | CT_ITS ---
Arie Vera EXAMINATION: CT abdomen pelvis w con COMPARISON: None HISTORY: abdominal pain TECHNIQUE: Axial images were obtained through the abdomen, pelvis post administration of IV contrast. Oral contrast was also administered. Coronal reconstruction images were obtained from the axial views. CT scan performed using dose optimization techniques including the following automated exposure control; adjustment of mA and/or kV; use of iterative reconstruction technique. Automatic exposure control was used to reduce radiation dose. Permanent radiation dose record is archived to PACS. FINDINGS: CT abdomen: LUNG BASES: The lung bases are clear. The visualized portions of the heart and pericardium are unremarkable. LIVER: Unremarkable, liver contours intact, no lesions. SPLEEN: Unremarkable. KIDNEYS: Right Kidney: Unremarkable. No calculi. No hydronephrosis. Left Kidney: Unremarkable. No calculi. No hydronephrosis ADRENAL GLANDS: Unremarkable. PANCREAS: Unremarkable. GALLBLADDER/BILIARY: Unremarkable. No biliary dilatation. STOMACH AND ESOPHAGUS: Visualized stomach and esophagus within normal limits. BOWEL/MESENTERY: Moderate fecal content, no colitis or diverticulitis. Appendix normal. Mesentery normal. Small bowel normal. ADENOPATHY/RETROPERITONEUM: No lymphadenopathy. AORTA/VASCULATURE: Normal caliber aorta. FREE FLUID OR FREE AIR: None. CT pelvis: SOLID ORGANS/REPRODUCTIVE: Unremarkable. BLADDER: Within normal limits. OSSEOUS STRUCTURES: No acute osseous abnormality.No suspicious lesions. OVERLYING SOFT TISSUES: Unremarkable. IMPRESSION: 1. No etiology identified to explain the patient's symptoms. Follow-up suggested if symptoms persist. Reviewed, dictated and finalized at location P. REMENT SALES CONSULTANT IMPRESSION: 1. No etiology identified to explain the patient's symptoms. Follow-up suggeste d if symptoms persist.
[2025-06-12 11:14] VITALS: BP 161/116; PULSE 67; RESP 16; TEMP 36.4; O2SAT 100
--- NOTE | 2025-06-12 11:19 | ECG_ITS ---
Test Date: 2025-06-12 11:23:10 Measurements Intervals [place] Rate: 58 P: 13 SD: 130 QRS: -18 QRSD: 89 T: -3 QT: 392 QTc: 387 Interpretive Statements SINUS BRADYCARDIA MINIMAL VOLTAGE CRITERIA FOR LVH, CONSIDER NORMAL VARIANT [MEETS CRITERIA IN ONE OF: R(aVL), S(V1), R(V5), R(V5/V6)+S(V1)] POOR R-WAVE PROGRESSION NONSPECIFIC T-WAVE ABNORMALITY LEFTWARD AXIS ABNORMAL ECG No previous ECG available for comparison Electronically Signed On 06-12-2025 17:11:34 BORE MILL OPERATOR by Arthur Dior M.D.
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
[2025-06-12 14:11] VITALS: BP 177/97; PULSE 64; RESP 18; O2SAT 100
[2025-06-12 14:29] LABS: Add Urine Microscopic? NO; Appearance Urine Clear (Clear); Glucose Urine UA Negative (Negative); Hematocrit 42.9 % (37.0-47.0); Hemoglobin 14.4 g/dL (12.0-15.0); Immature Granulocyte Percent A 0.4 % (0-0.5); Leukocyte Esterase Ur Negative LEU/UL (Negative); Lymphocytes Absolute Auto 3.08 K/mm3 (0.9-3.2); Mean Corpuscular HGB Conc 33.6 g/dl (32-36); Mean Corpuscular Hemoglobin 29.4 pg (26-34); Mean Corpuscular Volume 87.6 fl (80-100); Nitrate Urine Negative (Negative); Nucleated Red Blood Cells Absolute Auto 0.000 K/mm3 (0.0-0.012); Nucleated Red Blood Cells Perc 0.0 % (0.0-0.2); Platelet Count Result 392 k/mm3 (150-375); Red Blood Count 4.90 M/mm3 (4.2-5.4); Specific Grav Ur 1.015 (1.001-1.035); White Blood Count 10.9 K/mm3 (4.5-10.0)
[2025-06-12 14:46] LABS: Alanine Aminotransferase 26 U/L (6-35); Albumin Level 4.3 g/dL (3.5-5.1); Alkaline Phosphatase 71 U/L (38-126); Anion Gap 7 mmol/L (4-12); Aspartate Amino Transferase 29 U/L (14-36); Bilirubin,Total 0.5 mg/dL (0.2-1.3); Blood Urea Nitrogen 8 mg/dL (7-17); Calcium 9.4 mg/dL (8.4-10.2); Carbon Dioxide 26 mmol/L (22-30); Chloride 104 mmol/L (98-107); Estimated Glomerular Filt Rate > 60; Glucose 90 mg/dL (65-110); Potassium 3.8 mmol/L (3.4-5.0); Sodium 137 mmol/L (137-145); Total Protein 7.8 g/dL (6.3-8.2)
[2025-06-12 14:57] LABS: Lipase 39 U/L (23-300)
--- OUTSIDE RECORDS SUMMARY | 2025-06-12 16:23 | XMS_ITS | Encounter Summary ---
Author Organization [facility] Address [facility] [place] [address] Care Team Providers Care Multicultural Internship Name Role Phone Janis Powell Primary Care Provider [phone] Encounter Details Date Type Department Care Team (Late Contact Info) Description 12/11/2024 [employer] Message [employer] [facility] Medical Group General Surgery [address], [address] [address] [facility] Provider Phone number changed for central scheduling Social History Tobacco Use Types Packs/Day Years Used Date Smoking Tobacco: Every Day Cigarettes 0.5 18 Smokeless Tobacco: Never Comments:Provider can provid e more information about quitting. Alcohol Use Standard [...] Sex Assigned at Female 08/28/2024 2:17 PM WORKDAY CONSULTANT Legal Sex Female 10:22 PM WORKDAY CONSULTANT Gender Identity Not on file Sexual Orientation Not on file documented as of this encounter Plan of Treatment Upcoming Encounters Date Type Department Care Team (Late Contact Info) Description 06/19/2025 8:40 AM WORKDAY CONSULTANT Office Visit [facility] Medical Group Family & Internal Medicine - [place] [address] [place] [address] Janis Powell APNP [address] [place] [address] documented as of this encounter Visit Diagnoses Not on filedocumented in this encounter Additional Health Concerns Assessment Noted Time PHQ-9 Depression Total Score: 0 09/10/19 10:29 AM WORKDAY CONSULTANT documented as of this encounter Care Teams Multicultural Internship Relationship Specialty Start Date End Date Janis Powell APNP [address] [place] [id number] PCP - General NURSE PRACTITIONER 09/10/22 documented as of this encounter
--- OUTSIDE RECORDS SUMMARY | 2025-06-12 16:23 | XMS_ITS | Clinical Summary ---
Author Organization [facility] Address [facility] [place] [address] Care Team Providers Care Road Boss Name Role Phone Janis Powell Primary Care Provider Allergies No known active allergies Medications Vitamin D-Vitamin K (K2-D3 5000) 5000-90 UNIT-MCG Cap 5 Active propranolol LA (INDERAL LA) 80 MG 24 hr capsuleIndication s:Primary hypertension,Grav es disease,Heidy 's disease Take 1 capsule (80 mg total) by mouth daily. 90 capsule 3 5 Active Vitamin D-Vitamin K (D3 + K2 OR) Activ e magnesium oxide (MAG-OX) 250 MG tablet Take 1 tablet (250 mg total) by mouth daily. Active lisinopril (PRINIVIL) 10 MG tabletIndications :Primary hypertension Take 1 tablet (10 mg total) by mouth daily. 90 tablet 1 5 Active Active Problems Problem Noted Date Diagnosed Date Multiple thyroid nodules 11/27/2024 Hypertension BMI 31.0-31.9,adult Graves disease Heidy's disease Vitamin D deficiency PCOS (polycystic ovarian syndrome) Cigarette nicotine dependence without complicati on Encounters Date Type Department Care Team Description 05/09/2025 Telephone [facility] Medical Group Family & Internal Medicine [address] [phone] Janis Powell APNP Radiology Results (Mammogram [facility] 05/03/25) 05/03/2025 Scan [facility] INFO SRVCS Scanned, Doc Med Group Mammogram (SCAN) 04/30/2025 [employer] Message Enc [facility] Medical [facility] Family & Internal Medicine - [address] [phone] Janis Powell APNP Mammogram order from Last 3 Months Immunizations Immunization Administration Dates Next Due MODERNA COVID-19 (ASSISTANT PROFESSOR IN FAMILY STUDIES BERNADINE FANNY), MRNA, LNP-S, PF, 50 MCG/ [...] Tobacco: Never Tobacco Cessation:Ready to Q uit: No; Counseling Given: Yes Comments:Provider can provide more information about quitting. [...] Sex Assigned at Female 08/28/2024 2:17 PM LOGISTICS INTERN Legal Sex Female 10:22 PM LOGISTICS INTERN Gender Identity Not on file Sexual Orientation Not on file Last Filed Vital Signs Vital Sign Reading Time Taken Comments Blood Pressure 134/94 12/26/2024 7:20 AM CDT Pulse 75 12/26/2024 7:20 AM CDT Temperature 36.6 C (97.8 F) 12/26/2024 7:20 AM CDT Respiratory Rate 16 12/26/2024 7:20 AM CDT Oxygen Saturation 99% 12/26/2024 7:20 AM CDT Inhaled Oxygen Concentration - - Weight 99.1 kg (218 lb 8 oz) 12/26/2024 7:20 AM CDT Height 167.6 cm (5' 6) 12/26/2024 7:20 AM CDT Body Mass Index 35.27 12/26/2024 7:20 AM CDT Plan of Treatment Upcoming Encounters Date Type Department Care Team (Late st Contact Info) Description 06/19/2025 8:40 AM LOGISTICS INTERN Office Visit [facility] Medical [facility] Family & Internal Medicine - [address] [phone] Janis Powell, KAYLYNN [address] [place] [phone] Health Maintenance Due Date Last Done Comments Cervical Cancer Screening Pa p Smear (Age 30 to 64) Every 3 Years 1984 HPV Vaccines (1 - 3-dose SCD M series) 2011 Cervical Cancer Screening Pa p with HPV Testing (Age 30 to 64) Every 5 Years 2014 COVID-19 Vaccine (2024-2 6 season) 2025 07/09/2021, 11/18/2020, 10/21/2020 Influenza Adult (#1) 2025 Annual Physical 08/28/2025 08/28/2024 Cervical Cancer Screening with HPV 08/28/2025 Postponed from 06/04 (Going to Outside Clinic) Hepatitis B Vaccines (1 of 3 - 19+ 3-dose series) 08/28/2025 Postponed from 05/25 (Awaiting Documentation) Pneumococcal Vaccine: Pediatrics (0 to 5 Years) and At-Risk Patients (6 to 49 Years) (1 of 2 - PCV) 08/28/2025 Postponed from 05/2003 (Patient Refused) Mammogram Screening 05/03/2027 05/03/2025 DTaP, Tdap and Td Vaccines ( 2 - Td or Tdap) 09/10/2032 09/10/2022 Hepatitis C Completed 09/10/2022 PHQ-2 (Physician [place]) Completed 08/28/2024 Hepatitis A Vaccines Aged Out No long er eligible based on patient's age to complete [...] Procedure Name Priority Date/Time Associated Diagnosis Comments MAMMOGRAM GENERIC (SCAN ORDER) 05/03/2025 HEPATITIS C ANTIBODY W/RFX TO HCV RNA Routine 09/10/2022 10:58 AM LOGISTICS INTERN from Last 3 Months or Most Recently Relevant to Health Maintenance Results * MAMMOGRAM GENERIC (SCAN ORDER) (05/03/2025) Anatomical Region Laterality Modality Other 05/03/2025 us Doc [facility] Scanned SCANNING Final Resu lt * HEPATITIS C ANTIBODY W/RFX TO HCV RNA (09/10/2022 10:58 AM LOGISTICS INTERN) HEPATITIS C AB NON-REACT CASSIE NON-REACT CASSIE [facility] SIGNAL TO CUTOFF 0.02 <1.00 [facility] Comment: HCV antibody was non-reactive. There is no laboratory evidence of HCV infection. In most cases, no further action is required. However, if recent HCV exposure is suspected, a test for HCV RNA (test code 27970) is suggested. For additional information please refer to http://education.Mobilligy/faq/DBV29b6 (This link is being provided for informational/ educational purposes only.) 09/10/2022 10:5 8 AM LOGISTICS INTERN 09/10/2022 10:59 AM LOGISTICS INTERN Narrative [facility] - DEB ORDERS - 09/12/2022 7:43 AM LOGISTICS INTERN FASTING:NO FASTING: NO Resulting Agency Comment Performing Organization Information: Site ID: [place] Name: [facility] Address: [address] [address] Director: Harrison Zuñiga MD Janis [facility] Final Resul t [facility] - DEB DONALD [facility] [id number] [address], from Last 3 Months or Most Recently Relevant to Health Maintenance Insurance [employer] Care Teams Road Boss Relationship Specialty Start Date End Date Janis Powell APNP [address] [place] [address] [phone] PCP - General NURSE PRACTITIONER 09/10/22
--- OUTSIDE RECORDS SUMMARY | 2025-06-12 16:24 | XMS_ITS | Clinical Summary ---
Author Organization [facility] Address [address] [facility] [place] [address] Care Team Providers Care Dobie Worker Name Role Phone Janis Powell APRN, CNP Primary Care Provider + Allergies No known active allergies Medications Norethin Ambrocio-Eth Estrad-FE (LOESTRIN 24 FE PO) take 1 Tab by mouth daily. Control Active alprazolam 0.25 MG PO TABSIndications :Panic attacks take 1 Tab by mouth 2 times daily as needed. 30 Tab 0 05/01/2009 Active fluoxetine 20 MG PO CAPSIndications :Generalized anxiety disorder,Panic attacks take 1 Cap by mouth daily. 30 Cap 3 05/06/2009 Active Active Problems Problem Noted Date Diagnosed Date Panic attacks 05/01/2009 Generalized anxiety disorder 05/01/2009 Family History Medical History Relation Name Comments Congestive Heart Failure Father Diabetes Father Cancer Paternal Grandfather Diabetes Paternal Grandfather Relation Name Status Comments Father Paternal Grandfather Social History Tobacco Use Types Packs/Day Years Used Date Smoking Tobacco: Every Day Cigarettes 0.5 7 Alcohol Use Standard Drinks/Week Comments Yes 0 (1 standard drink = 0.6 oz pur e alcohol) Social Comments No Sex and Gender Information Value Date Recorded Sex Assigned at Not on file Legal Sex Female 3:51 AM DEPARTMENTAL BUYER Gender Identity Not on file Sexual Orientation Not on file Last Filed Vital Signs Vital Sign Reading Time Taken Comments Blood Pressure 130/90 05/01/2009 9:15 AM CDT Pulse 72 05/01/2009 9:15 AM CDT Temperature 36.3 C (97.4 F) 05/01/2009 9:15 AM CDT Respiratory Rate - - Oxygen Saturation - - Inhaled Oxygen Concentration - - Weight 83.9 kg (185 lb) 05/01/2009 9:15 AM CDT Height 167.6 cm (5' 6) 05/01/2009 9:15 AM CDT Body Mass Index 29.86 05/01/2009 9:15 AM CDT Plan of Treatment Health Maintenance Due Date Last Done Comments Hepatitis C Virus (HCV) Screening 1984 Mammogram 1984 Varicella Immunization (1 of 2 - 13+ 2-dose series) 1997 Hepatitis B Immunization (1 of 3 - 19+ 3-dose series) 2003 Pap Smear 2005 Human Papillomavirus (HPV) Immunization (1 - 3-dose SCDM series) 2011 Cervical Cancer Screening (CCS) 2014 HPV/Cotest 2014 Discussion re Starting/Frequency of Mammograms 2024 Influenza Immunization (#1) 2025 SARS-COV-2 Immunization ( season) 2025 07/09/2021, 11/18/2020, 10/21/2020 Respiratory Syncytial Virus (RSV) Immunization (Adult) (1 - 1-dose 75+ series) 2059 DTaP/Tdap/Td Immunization Discontinued 09/10/2022 TdaP Immunization Completed 09/10/2022 Meningococcal Immunization (ACWY) Aged Out No longer eligible based on patient's age to complete this topic Pneumococcal Immunization Combined Aged Out No longer eligible based on patient's age to complete this topic Rotavirus Immunization Aged Out No lo nger eligible based on patient's age to complete this topic Insurance [facility] on file Care Teams Dobie Worker Relationship Specialty Start Date End Date Janis Powell APRN, [place] [address] [place] [address] PCP - General Family Medicine 08/29/24
--- OUTSIDE RECORDS SUMMARY | 2025-06-12 16:24 | XMS_ITS | Encounter Summary ---
Author Organization [facility] Address [address] [place] [address] Phone Care Team Providers Care Brass And Wind Instrument Repairer Name Role Phone Gee Pacheco MD Primary Care Provider Encounter Details Date Type Department Care Team (Latest Contact Info) Description 09/27/2019 Orders Only [facility] EML Scanning, Provider Social History Tobacco Use Types Packs/Day Years Used Date Smoking Tobacco: Some Days Comments Unknown Sex and Gender Information Value Date Recorded Sex Assigned at Not on file Legal Sex Female 12:06 PM CDT Gender Identity Female 11/08/2019 12:02 PM CDT Sexual Orientation Straight 11/08/2019 12 :02 PM CDT documented as of this encounter Plan of Treatment Not on file documented as of this encounter Procedures Procedure Name Priority Date/Time Associated Diagnosis Comments SCAN - LABS 09/27/2019 documented in this encounter Results * SCAN - LABS (09/27/2019) us Provider Scanning Final Result documented in this encounter Visit Diagnoses Not on filedocumented in this encounter Care Teams Brass And Wind Instrument Repairer Relationship Specialty Start Date End Date Gee Pacheco MD PCP - General Ballet Company Artistic Director 12/16/18 documented as of this encounter
--- OUTSIDE RECORDS SUMMARY | 2025-06-12 16:24 | XMS_ITS | Patient Health Record ---
Author Organization [facility] Address [address] [place], [place] [address] Care Team Providers Care Laboratory Immunologist Name Role Phone Raven Velazco Unavailable [phone] Allergies No Known Allergies Reason For Referral No Information Medications Medication SIG (Take, Route, Frequency, Duration) Notes Start Date End Date Status Propranolol HCl ER 80 MG Capsule Extended Release 24 Hour TAKE 1 CAPSULE BY MOUTH DAILY Oral; Duration: 90 Days Active Lisinopril 10 MG Tablet TAKE 1 TABLET BY MOUTH ONCE DAILY Oral; Duration: 90 Days Active Problems Problem Type SNOMED Code ICD Code Onset Dates Problem Status W/U Status Risk Notes Problem Vitamin D deficiency (28049991) Vitamin D deficiency, unspecified (E55.9) Active confirmed Problem Graves disease (668610570) Graves disease (E05.00) Active confirmed Problem Polycystic ovary syndrome (disorder) (345792614) PCOS (polycystic ovarian syndrome) (E28.2) Active confirmed Problem 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 Velazco [address] [place] [address] 02/04/2025 [facility] [place] Multinodular goiter E04.2 ; PCOS (polycystic ovarian syndrome) E28.2 ; Obesity (BMI 30-39.9) E66.9 ; Heidy's thyroiditis E06.3 ; Graves disease E05.00 ; Lipid screening Z13.220 ; Vitamin D deficiency, unspecified E55.9 ; Other fatigue R53.83 and Dietary counseling and surveillance Z71.3 Assessments Encounter Date Diagnosis (ICD Code) Assessment Notes Treatment Notes Treatment Clinical Notes Section Notes 02/04/2025 PCOS (polycystic ovarian syndrome) (ICD-10 - E28.2) 02/04/2025 Multinodular goiter (ICD-10 - E04.2) 02/04/2025 Obesity (BMI 30-39.9) (ICD-10 - E66.9) 02/04/2025 Heidy's thyroiditis (ICD-10 - E06.3) 02/04/2025 Graves disease (ICD-10 - E05.00) 02/04/2025 Lipid screening (ICD-10 - Z13.220) 02/04/2025 Vitamin D deficiency, unspecified (ICD-10 - E55.9) 02/04/2025 Other fatigue (ICD-10 - R53.83) 02/04/2025 Dietary counseling and surveillance (ICD-10 - Z71.3) Spent 15 minutes preventative counseling patient on dietary recommendations and changes in setting of hyperglycemia- need to restrict refined sugars and processed foods and incorporate up to 150 minutes of moderate level activity weekly. 02/04/2025 Other Assessment and Plan: 1. Thyroid enlargement- Schedule thyroid uptake scan, she is following a thyroid surgeon and may need to consider right partial thyroidectomy depending on lab results and imaging findings- Order thyroid function tests, including TSH- Check iodine levels - Recommend continuation of selenium supplementation which can be used from supplement below- Suggest Purely Holistic Thyroid Support supplement (contains selenium, magnesium, manganese, levocarnitine, ashwagandha, and 300 mcg iodine)- Follow up in 3-4 weeks to review scan and lab results 2. Weight management- Discuss potential restart of GLP-1 agonist therapy (e.g., Ozempic, tirzepatide) based on insurance coverage- Recommend autoimmune paleo diet- Suggest Berberine, myoinositol, and chromium supplements- Consider Inosacare powder (contains Berberine, myoinositol, and chromium) for shake 3. Possible PCOS- Order pituitary-adrenal hormone panel- Evaluate menstrual cycle regularity (patient reports normal cycles after endometrial ablation and tubal ligation in 2022) Spent 45 minutes preparing to see the patient (ex review of tests/chart), obtaining and / or reviewing separately obtained history, performing a medically appropriate examination and/or evaluation, counseling and educating the patient/family/lawn care worker, ordering medications, tests, or procedures, referring and communicating with other health after school caregiver, documenting clinical information in the electronic or other health record, independently interpreting results and communicating results to the patient/family/lawn care worker and care coordinating patient plan. Patient alert and oriented x 4 and aware of discussion noted above and in agreeance to plan in management of multinodular goiter, PCOS, obesity/weight management, autoimmune thyroiditis, fatigue and vitamin evaluation. Plan Of Treatment No Information Insurance Providers Payer Name Payer Address Payer Phone Subscriber Number Group Number Insured Name Patient Relationship to Insured Coverage Start Date Coverage End Date [facility] [address] [address] [place] [address] [phone] [id number] Demond Vera Self - patient is the insured Medical (General) History Medical History History ICD Code Hypertension PCOS Thyroid Surgical History Surgery Date(Month/Year) Ablation with tubal ligation carpel (rt) Hospitalization History Reason Date(Month/Year) EAR TUBES DNE
--- OUTSIDE RECORDS SUMMARY | 2025-06-12 16:24 | XMS_ITS | Clinical Summary ---
Author Organization [facility] Address [address] [place] [address] Care Team Providers Care Plastic Sheeting Cutter Name Role Phone Gee Pacheco MD Primary Care Provider Allergies No known active allergies Medications blood pressure test kit-wrist kit Please check BP and pulse twice daily 1 each 11/12/2019 Active lisinopriL (PRINIVIL,ZESTR IL) 10 mg tablet Take 10 mg by mouth daily 10/04/2020 Active propranolol LA (INDERAL LA) 80 mg 24 hr capsuleIndicati ons:Graves disease Take 1 capsule by mouth once daily 90 capsule 01/05/2022 Active vitamin D3-vitamin K2 (K2-D3 Max) 125 mcg (5,000 unit)-180 mcg capsule Active SELENIUM Active magnesium oxide (MAG-OX) 250 mg (150.8 mg elemental) tablet Take 1 tablet (250 mg total) by mouth daily Active Active Problems Problem Noted Date Diagnosed Date PCOS (polycystic ovarian syndrome) 11/21/2019 HENNING (dyspnea on exertion) Encounters Date Type Department Care Team Description 04/12/2025 Telephone [facility] Diabetes and Endocrinology [facility] [place] [address] Leonel Donnelly MD Medical Question/Miscellaneou s 04/02/2025 8:30 AM CDT Office Visit [facility] [id number] [place] [address] [address] [phone] Leonel Donnelly MD Multinodular goiter (Primary Dx); Abnormal thyroid blood test from Last 3 Months Surgical History Surgery Date Site/Laterality Comments ABLATION Medical History Medical History Date Comments Graves disease Heidy's thyroiditis Family History Medical History Relation Name Comments Diabetes Father Heart disease Father Thyroid disease Maternal Grandmother No Known Problems Mother Colon cancer Paternal Grandmother Diabetes Paternal Grandmother Heart failure Paternal Grandmother Relation Name Status Comments Father Alive Maternal Grandmother Mother Paternal Grandmother Social History Tobacco Use Types Packs/Day Years Used Date Smoking Tobacco: Every Day Smokeless Tobacco: Never Comments Unknown Sex and Gender Information Value Date Recorded Sex Assigned at Not on file Legal Sex Female 12:06 PM CDT Gender Identity Female 11/08/2019 12:02 PM CDT Sexual Orientation Straight 11/08/2019 12 :02 PM CDT Last Filed Vital Signs Vital Sign Reading Time Taken Comments Blood Pressure 124/82 04/02/2025 8:15 AM CDT Pulse 73 04/02/2025 8:15 AM CDT Temperature 37.1 C (98.7 F) 08/23/2017 7:55 AM IRRIGATION INSTALLATION SPECIALIST Respiratory Rate 15 04/02/2025 8:15 AM CDT Oxygen Saturation 99% 08/23/2017 11:15 AM IRRIGATION INSTALLATION SPECIALIST Inhaled Oxygen Concentration - - Weight 98 kg (216 lb) 04/02/2025 8:15 AM CDT Height 167.6 cm (5' 6) 04/02/2025 8:15 AM CDT Body Mass Index 34.86 04/02/2025 8:15 AM CDT Plan of Treatment Health Maintenance Due Date Last Done Comments Cervical Cancer Screening 1984 Depression Screening 1984 Hepatitis C Screening 1984 Varicella Vaccines (1 of 2 - 13+ 2-dose series) 1997 Hepatitis B Screening 2002 Regular Well Visit/Exam 18-64 2002 Pneumococcal vaccine <65 (1 of 2 - PCV) 2003 HPV Vaccines (1 - 3-dose SCDM series) 2011 Breast Cancer Screening-Mammogram 01/04/2018 017 Covid-19 Vaccine ( season) 2025 07/09/2021, 11/18/2020, 10/21/2020 Influenza Vaccine (#1) 2025 DTaP/Tdap/Td Vaccine (2 - Td or Tdap) 09/10/2032 Procedures Procedure Name Priority Date/Time Associated Diagnosis Comments FREE T4 BY DIALYSIS/COMMUNITY HEALTH PLANNING DIRECTOR Routine 05/30/2025 7:24 AM IRRIGATION INSTALLATION SPECIALIST Abnormal thyroid blood test T3, FREE Routine 05/30/2025 7:23 AM IRRIGATION INSTALLATION SPECIALIST Abnormal thyroid blood test TSH Routine 05/30/2025 7:23 AM IRRIGATION INSTALLATION SPECIALIST Abnormal thyroid blood test DIAGNOSTIC MAMMOGRAM BILATERAL W KALYAN Routine 01/04/2017 2:06 PM CDT from Last 3 Months or Most Recently Relevant to Health Maintenance Results * Free T4 by Dialysis/Nutrition Therapist (05/30/2025 7:24 AM IRRIGATION INSTALLATION SPECIALIST) Free T4 2.1 0.9 - 2.2 ng/dL [facility], Comment: Reference Ranges for T4, Free, Direct Dialysis: First Trimester: 0.9-2.0 ng/dL Second Trimester: 0.8-1.5 ng/dL Third Trimester: 0.8-1.7 ng/dL This test was developed and its analytical performance characteristics have been determined by Project Manager. It has not been cleared or approved by the FDA. This assay has been validated pursuant to the CLIA regulations and is used for clinical purposes. Blood 05/30/2025 7:24 AM IRRIGATION INSTALLATION SPECIALIST 05/30/2025 7:24 AM IRRIGATION INSTALLATION SPECIALIST Leonel Dhillon MD LAB BLOOD ORDERABLE S Final Result [facility], [address] [place] [address] * T3, free (05/30/2025 7:23 AM IRRIGATION INSTALLATION SPECIALIST) Free T3 3.7 2.3 - 4.2 pg/mL [facility] Blood 05/30/2025 7:23 AM IRRIGATION INSTALLATION SPECIALIST 05/30/2025 7:24 AM IRRIGATION INSTALLATION SPECIALIST Leonel Dhillon MD LAB BLOOD ORDERABLE S Final Result Performing Organization Address [facility] Phone Number [facility] [address] [place] [address] * (ABNORMAL) TSH (05/30/2025 7:23 AM IRRIGATION INSTALLATION SPECIALIST) TSH 0.01(L) mIU/L [facility] Comment: Reference Range > or = 20 Years 0.40-4.50 Ranges First trimester 0.26-2.66 Second trimester 0.55-2.73 Third trimester 0.43-2.91 Blood 05/30/2025 7:23 AM IRRIGATION INSTALLATION SPECIALIST 05/30/2025 7:24 AM IRRIGATION INSTALLATION SPECIALIST Leonel Dhillon MD LAB BLOOD ORDERABLE S Final Result Performing Organization Address [facility] Phone Number [facility] [address] [place] [address] * Diagnostic Mammogram Bilateral W Kalyan (01/04/2017 2:06 PM CDT) Anatomical Region Laterality Modality Breast Bilateral Mammography 01/04/2017 2:06 PM CDT Narrative 01/04/2017 2:06 PM CDT Acc#: [id number] BRENDA [id number] - Diag Mamm W Kalyan Bi DATE OF EXAM: Jan 04 2017 9:06AM DIAGNOSIS: MASTODYNIA CLINICAL HISTORY: BREAST PAIN RESULT: HISTORY: Right breast pain. EXAMINATION: Diag Mamm W Kalyan Bi ORDER DATE: 01/04/2017 9:06 AM COMPARISON: None TECHNIQUE: Full field digital mammography was performed in the CC and MLO and 90 degree ML projections. CAD and tomosynthesis were utilized. Additional spot compression views of the right breast were obtained. Targeted ultrasound of the right breast was also performed. FINDINGS: Scattered dense fibroglandular tissue seen bilaterally. Some residual parenchymal density in the retroareolar region bilaterally. No dominant masses or areas suspicious calcification. Additional compression spot views of the right breast revealed persistent retroareolar density. This area of this retroareolar area was evaluated by ultrasound. On sonographic images, no solid or cystic lesion is seen in the retroareolar or periareolar region. A normal-sized lymph node is seen in the right axillary region. IMPRESSION: BI-RADS 1 negative. Mild asymmetric density in the retroareolar region on the right side, in the region of pain on mammogram. This density was evaluated by ultrasound. No solid or cystic lesion is noted. Recommendation includes continued annual screening mammography, regular monthly breast self examination, and yearly breast examination by a physician. Electronically signed by: Madi Meza M.D. TECHNOLOGIST: ROMI HAGEN TECHNOLOGIST MEDICAL IMAGING DOCUMENT EXAMINER: VisualOn TRANSCRIBE DATE/TIME: Jan 04 2017 12:06P RADIOLOGIST: MADI MEZA M.D. READ ON: Jan 04 2017 12:10P ORDERING DR: BIRD LANDA M.D. THIS DOCUMENT HAS BEEN ELECTRONICALLY SIGNED BY: MADI MEZA M.D. ON: Jan 04 2017 12:06P Attending: BIRD LANDA Requesting: BIRD LANDA Requesting Attending Attending ID: [id number] Requesting ID: [id number] Report To 1 ID: Report To 1 Name: , Report To 1 FAX: -- Report To 2 ID: Report To 2 Name: , Report To 2 FAX: -- NextGen Order #: Procedure Note Miscellaneous, Not In File / Provider, MD Kimber - 01/04/2017 Acc#: [id number] BRENDA [id number] - Diag Mamm W Kalyan Bi DATE OF EXAM: Jan 04 2017 9:06AM DIAGNOSIS: MASTODYNIA CLINICAL HISTORY: BREAST PAIN RESULT: HISTORY: Right breast pain. EXAMINATION: Diag Mamm W Kalyan Bi ORDER DATE: 01/04/2017 9:06 AM COMPARISON: None TECHNIQUE: Full field digital mammography was performed in the CC and MLO and 90 degree ML projections. CAD and tomosynthesis were utilized. Additional spot compression views of the right breast were obtained. Targeted ultrasound of the right breast was also performed. FINDINGS: Scattered dense fibroglandular tissue seen bilaterally. Some residual parenchymal density in the retroareolar region bilaterally. No dominant masses or areas suspicious calcification. Additional compression spot views of the right breast revealed persistent retroareolar density. This area of this retroareolar area was evaluated by ultrasound. On sonographic images, no solid or cystic lesion is seen in the retroareolar or periareolar region. A normal-sized lymph node is seen in the right axillary region. IMPRESSION: BI-RADS 1 negative. Mild asymmetric density in the retroareolar region on the right side, in the region of pain on mammogram. This density was evaluated by ultrasound. No solid or cystic lesion is noted. Recommendation includes continued annual screening mammography, regular monthly breast self examination, and yearly breast examination by a physician. Electronically signed by: Madi Meza M.D. TECHNOLOGIST: ROMI HAGEN, TECHNOLOGIST MEDICAL IMAGING DOCUMENT EXAMINER: ANUSHA TRANSCRIBE DATE/TIME: Jan 04 2017 12:06P RADIOLOGIST: MADI MEZA M.D. READ ON: Jan 04 2017 12:10P ORDERING DR: BIRD LANDA M.D. THIS DOCUMENT HAS BEEN ELECTRONICALLY SIGNED BY: MADI MEZA M.D. ON: Jan 04 2017 12:06P Attending: BIRD LANDA Requesting: BIRD LANDA Requesting Attending Attending ID: [id number] Requesting ID: [id number] Report To 1 ID: Report To 1 Name: , Report To 1 FAX: -- Report To 2 ID: Report To 2 Name: , Report To 2 FAX: -- NextGen Order #: us Not In File Miscellaneous IMG MAMMO PROCEDURES F inal Result from Last 3 Months or Most Recently Relevant to Health Maintenance Insurance [facility] AET[employer] SIGNATURE Care Teams Plastic Sheeting Cutter Relationship Specialty Start Date End Date Gee Pacheco MD PCP - General Math Tutor 12/16/18
[2025-06-12] MEDS: PANTOPRAZOLE SODIUM IV 40 MG VIAL 80 MG IV PUSH (16:59)
[2025-06-12] MEDS: BELLADONNA ALK/PHENOB ELIX 10 ML, MAG HYDROX/ALUMINUM HYD/SIMETH 30 ML, LIDOCAINE 2% VI... PO (17:02)
--- OUTSIDE RECORDS SUMMARY | 2025-06-12 23:59 | XMS_ITS | Clinical Summary ---
Author Organization [facility] Address [facility] [place] [address] Care Team Providers Care Good Humor Vendor Name Role Phone Janis Powell Primary Care [...] Type Department Care Team Description 05/09/2025 Telephone [facility] Family & Internal Medicine [address] [address] Janis Powell APNP Radiology Results (Mammogram [facility] 05/03/25) 05/03/2025 Scan [facility] INFO SRVCS Scanned, Doc Med Group Mammogram (SCAN) 04/30/2025 Signature Contracting Servicest Message Enc [facility] Family & Internal Medicine - [address] [address] Janis Powell APNP Mammogram order from Last 3 Months Immunizations Immunization Administration Dates Next Due MODERNA COVID-19 (SERVICE SUPERVISOR BERNADINE FANNY), MRNA, LNP-S, PF, 50 MCG/ [...] Sex Assigned at Female 08/28/2024 2:17 PM VALUATION MANAGER Legal Sex Female 10:22 PM VALUATION MANAGER Gender Identity Not on file Sexual Orientation [...] st Contact Info) Description 06/19/2025 8:40 AM VALUATION MANAGER Office Visit [facility] Family & Internal Medicine - [address] [phone] Janis Powell, KAYLYNN [address] [place] [id number] Health Maintenance Due Date Last Done Comments [...] 09/10/2022 Hepatitis C Completed 09/10/2022 PHQ-2 (Physician [place]) Completed 08/28/2024 Hepatitis A Vaccines Aged Out [...] TO HCV RNA Routine 09/10/2022 10:58 AM VALUATION MANAGER from Last 3 Months or Most Recently Relevant to Health Maintenance Results * MAMMOGRAM GENERIC (SCAN ORDER) (05/03/2025) Anatomical Region Laterality Modality Other 05/03/2025 us Doc Med Group Scanned SCANNING Final Resu lt * HEPATITIS C ANTIBODY W/RFX TO HCV RNA (09/10/2022 10:58 AM VALUATION MANAGER) HEPATITIS C AB NON-REACT CASSIE NON-REACT CASSIE [place] [facility] SIGNAL TO CUTOFF 0.02 <1.00 [place] [facility] Comment: HCV antibody was non-reactive. There is no laboratory evidence of HCV infection. In most cases, no further action is required. However, if recent HCV exposure is suspected, a test for HCV RNA (test code 09277) is suggested. For additional information please refer to http://education.Physihome/faq/MZR78e7 (This link is being provided for informational/ educational purposes only.) 09/10/2022 10:5 8 AM VALUATION MANAGER 09/10/2022 10:59 AM VALUATION MANAGER Narrative [place] - DEB ORDERS - 09/12/2022 7:43 AM VALUATION MANAGER FASTING:NO FASTING: NO Resulting Agency Comment Performing Organization Information: Site ID: [place] Name: [facility] Address: [address] [address] Director: Harrison Zuñiga MD Janis [facility] Final Resul t [place] - DEB DONALD [place] [facility] [address] [address] [id number], from Last 3 Months or Most Recently Relevant to Health Maintenance Insurance [employer] Care Teams Good Humor Vendor Relationship Specialty Start Date End Date Janis Powell APNP [address] [place] [phone] PCP - General NURSE PRACTITIONER 09/10/22
--- OUTSIDE RECORDS SUMMARY | 2025-06-12 23:59 | XMS_ITS | Encounter Summary ---
Author Organization [facility] Address [facility] [place] [address] Care Team Providers Care Pillowcase Maker Name Role Phone Janis Powell Primary Care Provider +1 [phone] Encounter Details Date Type Department Care Team (Late Contact Info) Description 12/11/2024 [email or web address] Message [facility] General Surgery [address], [address] [address] [facility] Provider Phone number changed for central scheduling [...] Sex Assigned at Female 08/28/2024 2:17 PM ELEVATOR SERVICE MECHANIC Legal Sex Female 10:22 PM ELEVATOR SERVICE MECHANIC Gender Identity Not on file Sexual Orientation Not on file documented as of this encounter Plan of Treatment Upcoming Encounters Date Type Department Care Team (Late Contact Info) Description 06/19/2025 8:40 AM ELEVATOR SERVICE MECHANIC Office Visit [facility] Family & Internal Medicine - [place] [address] [place] [address] Janis Powell APNP [address] [place] [address] documented as of this encounter Visit Diagnoses Not on filedocumented in this encounter Additional Health Concerns Assessment Noted Time PHQ-9 Depression Total Score: 0 09/10/19 10:29 AM ELEVATOR SERVICE MECHANIC documented as of this encounter Care Teams Pillowcase Maker Relationship Specialty Start Date End Date Janis Powell APNP [address] [place] [address] PCP - General NURSE PRACTITIONER 09/10/22 documented as of this encounter
--- OUTSIDE RECORDS SUMMARY | 2025-06-12 23:59 | XMS_ITS | Clinical Summary ---
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
== END 2025-06-12 18:03 | disposition home or self-care (01) ==
PROVIDERS: Emergency Provider Emergency Medicine; PCP Registered Nurse
DX: K29.80 Duodenitis without bleeding (principal); I10 Essential (primary) hypertension; F17.210 Nicotine dependence, cigarettes, uncomplicated
CPT/HCPCS: 36415; 74177; 76705; 80053; 81003; 83690; 85025; 93005; 96374; 99284; A9270; J2470; Q9967

== ENCOUNTER 2025-07-09 13:33 | Outpatient (CLI) | payer OTHER, SELFPAY ==
[2025-07-09 14:45] LABS: Amylase 47 U/L (30-110)
--- OUTSIDE RECORDS SUMMARY | 2025-07-09 15:42 | XMS_ITS | Patient Health Record ---
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 Velazco [address] [place] [address] 02/04/2025 [facility] Wood Multinodular goiter E04.2 ; [...] examination and/or evaluation, counseling and educating the patient/family/senior caregiver, ordering medications, tests, or procedures, referring and communicating with other health healthcare administrative assistant, documenting clinical information in the electronic or other health record, independently interpreting results and communicating results to the patient/family/senior caregiver and care coordinating patient plan. Patient alert [...] Insured Coverage Start Date Coverage End Date [facility] [address] [address] [place] [address] [id number] Demond Vera Self - patient is the insured Medical (General) History Medical History History ICD Code Hypertension PCOS Thyroid Surgical History Surgery Date(Month/Year) Ablation with tubal ligation carpel (rt) Hospitalization History Reason Date(Month/Year) EAR TUBES DNE
--- OUTSIDE RECORDS SUMMARY | 2025-07-09 15:42 | XMS_ITS | Encounter Summary ---
Author Organization [facility] Address [facility] [place] [address] Care Team Providers Care Site Controller Name Role Phone Janis Powell Primary Care Provider [phone] [phone] Encounter Details Date Type Department Care Team (Late st Contact Info) Description 12/11/2024 [facility] [employer] Message [facility] General Surgery [address], [address] [address] [facility] Provider Phone number changed for [...] Sex Assigned at Female 08/28/2024 2:17 PM SALES ENGAGEMENT MANAGER Legal Sex Female 10:22 PM SALES ENGAGEMENT MANAGER Gender Identity Not on file Sexual Orientation Not on file documented as of this encounter Plan of Treatment Not on file documented as of this encounter Visit Diagnoses Not on filedocumented in this encounter Additional Health Concerns Assessment Noted Time PHQ-9 Depression Total Score: 0 09/10/19 10:29 AM SALES ENGAGEMENT MANAGER documented as of this encounter Care Teams Site Controller Relationship Specialty Start Date End Date Janis Powell APNP [address] [place] [address] PCP - General NURSE PRACTITIONER 09/10/22 documented as of this encounter
--- OUTSIDE RECORDS SUMMARY | 2025-07-09 15:42 | XMS_ITS | Clinical Summary ---
Author Organization [facility] Address [facility] [place] [address] Care Team Providers Care Newspaper Editor Managing Name Role Phone SherrySheltonjeanette CHAIDEZ Primary Care Provider Allergies No known active [...] Encounters Date Type Department Care Team Description 06/18/2025 Scan [facility] Scanned, Doc [facility] 06/12/2025 Scan [facility] INFO [facility] Scanned, Doc [facility] Group 05/09/2025 Telephone [facility] Family & Internal Medicine [place] [place] [address] Janis Powell APNP Radiology Results (Mammogram [facility] 05/03/25) 05/03/2025 Scan [facility] INFO SRVCS Scanned, Doc [facility] Group Mammogram (SCAN) 04/30/2025 MyChart Message Enc [facility] Family & Internal Medicine [address] [place] [address] Janis Powell APNP Mammogram order from Last 3 Months Immunizations Immunization Administration Dates Next Due MODERNA COVID-19 (CASING MATERIAL WEIGHER BERNADINE FANNY), MRNA, LNP-S, PF, 50 MCG/ [...] Sex Assigned at Female 08/28/2024 2:17 PM BOILER OPERATORS SUPERVISOR Legal Sex Female 10:22 PM BOILER OPERATORS SUPERVISOR Gender Identity Not on file Sexual Orientation [...] 12/26/2024 7:20 AM CDT Plan of Treatment Health Maintenance [...] 09/10/2022 Hepatitis C Completed 09/10/2022 PHQ-2 (Physician [place]) Completed 08/28/2024 Hepatitis A Vaccines Aged Out [...] TO HCV RNA Routine 09/10/2022 10:58 AM BOILER OPERATORS SUPERVISOR from Last 3 Months or Most Recently Relevant to Health Maintenance Results * MAMMOGRAM GENERIC (SCAN ORDER) (05/03/2025) Anatomical Region Laterality Modality Other 05/03/2025 us Doc Med Group Scanned SCANNING Final Resu lt * HEPATITIS C ANTIBODY W/RFX TO HCV RNA (09/10/2022 10:58 AM BOILER OPERATORS SUPERVISOR) HEPATITIS C AB NON-REACT CASSIE NON-REACT CASSIE Electronic Bra[facility] SIGNAL TO CUTOFF 0.02 <1.00 Electronic Brailler [facility] Comment: HCV antibody was non-reactive. There is no laboratory evidence of HCV infection. In most cases, no further action is required. However, if recent HCV exposure is suspected, a test for HCV RNA (test code 16038) is suggested. For additional information please refer to http://education.IGAWorks/faq/URD65g0 (This link is being provided for informational/ educational purposes only.) 09/10/2022 10:5 8 AM BOILER OPERATORS SUPERVISOR 09/10/2022 10:59 AM BOILER OPERATORS SUPERVISOR Narrative ROLDAN PAPPAS - DEB ORDERS - 09/12/2022 7:43 AM BOILER OPERATORS SUPERVISOR FASTING:NO FASTING: NO Resulting Agency Comment Performing Organization Information: Site ID: [place] Name: [facility] Address: [address] [address] Director: Harrison uZñiga MD Janis [facility] Final Resul t ROLDAN BENNETT [employer] [facility] [address] [address] from Last 3 Months or Most Recently Relevant to Health Maintenance Insurance [employer] Care Teams Newspaper Editor Managing Relationship Specialty Start Date End Date Janis Powell APNP [address] [place] [address] PCP - General NURSE PRACTITIONER 09/10/22
--- OUTSIDE RECORDS SUMMARY | 2025-07-09 15:42 | XMS_ITS | Clinical Summary ---
Author Organization [facility] Address [address] [place] [address] Care Team Providers Care Elementary Classroom Teacher Name Role Phone Gee Pacheco MD Primary [...] Encounters Date Type Department Care Team Description 06/17/2025 Results Follow-Up [facility] Group Diabetes and Endocrinology [address] [place] [address] Leonel Donnelly MD TSH, T3, free, Free T4 by Dialysis/Sports Editor 04/12/2025 Telephone [facility] Group Diabetes and Endocrinology [address] [place] [phone] Alejo Dhillon, Leonel Dhillon MD Medical Question/Miscellaneo us from Last 3 Months Surgical History Surgery [...] 37.1 C (98.7 F) 08/23/2017 7:55 AM VICE PRESIDENT PLANNING Respiratory Rate 15 04/02/2025 8:15 AM CDT Oxygen Saturation 99% 08/23/2017 11:15 AM VICE PRESIDENT PLANNING Inhaled Oxygen Concentration - - Weight 98 [...] Date/Time Associated Diagnosis Comments FREE T4 BY DIALYSIS/TRIMMING OPERATOR Routine 05/30/2025 7:24 AM VICE PRESIDENT PLANNING Abnormal thyroid blood test T3, FREE Routine 05/30/2025 7:23 AM VICE PRESIDENT PLANNING Abnormal thyroid blood test TSH Routine 05/30/2025 7:23 AM VICE PRESIDENT PLANNING Abnormal thyroid blood test DIAGNOSTIC MAMMOGRAM BILATERAL W KALYAN Routine 01/04/2017 2:06 PM CDT from Last 3 Months or Most Recently Relevant to Health Maintenance Results * Free T4 by Dialysis/Sports Editor (05/30/2025 7:24 AM VICE PRESIDENT PLANNING) Free T4 2.1 0.9 - 2.2 ng/dL [facility], Comment: Reference Ranges for T4, Free, Direct Dialysis: First Trimester: 0.9-2.0 ng/dL Second Trimester: 0.8-1.5 ng/dL Third Trimester: 0.8-1.7 ng/dL This test was developed and its analytical performance characteristics have been determined by [facility]. It has not been cleared or approved by the FDA. This assay has been validated pursuant to the CLIA regulations and is used for clinical purposes. Blood 05/30/2025 7:24 AM VICE PRESIDENT PLANNING 05/30/2025 7:24 AM VICE PRESIDENT PLANNING us Leonel Dhillon MD LAB BLOOD ORDERABLE S Final Result [facility], [address] [place] [address] * T3, free (05/30/2025 7:23 AM VICE PRESIDENT PLANNING) Free T3 3.7 2.3 - 4.2 pg/mL [facility] Blood 05/30/2025 7:23 AM VICE PRESIDENT PLANNING 05/30/2025 7:24 AM VICE PRESIDENT PLANNING Leonel Dhillon MD LAB BLOOD ORDERABLE S Final Result Performing Organization Address [facility] de Phone Number [facility] [address] [place] [address] * (ABNORMAL) TSH (05/30/2025 7:23 AM VICE PRESIDENT PLANNING) TSH 0.01(L) mIU/L [facility] Comment: Reference Range > or = 20 Years 0.40-4.50 Ranges First trimester 0.26-2.66 Second trimester 0.55-2.73 Third trimester 0.43-2.91 Blood 05/30/2025 7:23 AM VICE PRESIDENT PLANNING 05/30/2025 7:24 AM VICE PRESIDENT PLANNING Leonel Dhillon MD LAB BLOOD ORDERABLE S Final Result Performing Organization Address [facility] de Phone Number [facility] [address] [place] [address] * Diagnostic Mammogram Bilateral W [place] (01/04/2017 2:06 PM CDT) Anatomical Region Laterality Modality Breast Bilateral Mammography 01/04/2017 2:06 PM CDT Narrative 01/04/2017 2:06 PM CDT Acc#: [id number] BRENDA [id number] - Diag Mamm W [place] [...] M.D. TECHNOLOGIST: ROMI HAGEN TECHNOLOGIST MEDICAL IMAGING AUTOMATION APPLICATION ENGINEER: ANUSHA TRANSCRIBE DATE/TIME: Jan 04 2017 12:06P RADIOLOGIST: MADI MEZA M.D. READ ON: Jan 04 2017 12:10P ORDERING DR: BIRD LANDA M.D. THIS DOCUMENT HAS BEEN ELECTRONICALLY SIGNED BY: MADI EMZA M.D. ON: Jan 04 2017 12:06P Attending: BIRD LANDA Requesting: BIRD LANDA Requesting Attending Attending ID: [id number] Requesting ID: [id number] Report To 1 ID: Report To 1 Name: , Report To 1 FAX: -- Report To 2 ID: Report To 2 Name: , Report To 2 FAX: -- NextGen Order #: Procedure Note Miscellaneous, Not In File / Provider, MD Kimber - 01/04/2017 Acc#: [id number] BRENDA [id number] - Diag Mamm W [place] [...] M.D. TECHNOLOGIST: ROMI HAGEN, TECHNOLOGIST MEDICAL IMAGING AUTOMATION APPLICATION ENGINEER: PSC TRANSCRIBE DATE/TIME: Jan 04 2017 12:06P RADIOLOGIST: MADI MEZA M.D. READ ON: Jan 04 2017 12:10P ORDERING DR: BIRD LANDA M.D. THIS DOCUMENT HAS BEEN ELECTRONICALLY SIGNED BY: MADI MEZA M.D. ON: Jan 04 2017 12:06P Attending: BIRD LANDA Requesting: BIRD LANDA Requesting Attending Attending ID: [id number] Requesting ID: [id number] Report To 1 ID: Report To 1 Name: , Report To 1 FAX: -- Report To 2 ID: Report To 2 Name: , Report To 2 FAX: -- NextGen Order #: us Not In File Miscellaneous IMG MAMMO PROCEDURES F inal Result from Last 3 Months or Most Recently Relevant to Health Maintenance Insurance [facility] HMO/PPO Address: [address] [address] [place] [address] [facility] [employer] SIGNATURE Care Teams Elementary Classroom Teacher Relationship Specialty Start Date End Date Gee Pacheco MD PCP - General Chaplain Resident 12/16/18
--- OUTSIDE RECORDS SUMMARY | 2025-07-09 15:43 | XMS_ITS | Clinical Summary ---
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
--- OUTSIDE RECORDS SUMMARY | 2025-07-09 15:43 | XMS_ITS | Encounter Summary ---
Author Organization [facility] Address [address] [place] [address] Phone Care Team Providers Care Director Of Pediatric Rehabilitation Name Role Phone Gee Pacheco MD Primary [...] on filedocumented in this encounter Care Teams Director Of Pediatric Rehabilitation Relationship Specialty Start Date End Date Gee Pacheco MD PCP - General Financial Coordinator 12/16/18 documented as of this encounter
== END 2025-07-09 13:34 | disposition home or self-care (01) ==
LOC: ANHLAB 13:34
PROVIDERS: Surgery; PCP Registered Nurse; Visit Provider Anesthesiology
DX: Z01.812 Encounter for preprocedural laboratory examination (principal); K80.20 Calculus of gallbladder without cholecystitis without obstruction; K80.10 Calculus of gallbladder with chronic cholecystitis without obstruction
CPT/HCPCS: 36415; 82150; 86850; 86900; 86901